=== PATIENT | male | born 1975 | race Caucasian/White ===

== ENCOUNTER 2020-02-14 13:38 | Emergency (ER) | payer BC ==
--- NOTE | 2020-02-14 15:13 | EDM.PDOC ---
ED HPI GENERAL MEDICAL PROBLEM - General Chief Complaint: Abdominal Pain Stated Complaint: HERNIA FLAIR UP Time Seen by Provider: 02/14/20 13:50 Source of Information: Reports: Patient History Limitations: Reports: No Limitations - History of Present Illness INITIAL COMMENTS - FREE TEXT/NARRATIVE: Presents to the emergency room reporting that his hernia hurts. Patient states that he saw his primary provider within the last couple of weeks about an umbilical hernia. He has an ultrasound ordered for February 21. His provider told him that if it ever became painful he should come to the ER and thus he presents. States it used to be soft but now is more firm. Denies fever, dysuria, abdominal pain, nausea, vomiting, constipation or diarrhea. He states he had a somewhat hard brown stool this morning. hernia Pain Score (Numeric/FACES): 7 - Related Data Allergies Allergy/AdvReac Type Severity Reaction Status Date / Time No Known Allergies Allergy Verified 02/14/20 13:56 Home Meds: Home Meds . [No Known Home Meds] 02/14/20 [History] Past Medical History - Past Health History Medical/Surgical History: Denies Medical/Surgical History - Infectious Disease History Infectious Disease History: Reports: Chicken Pox Social & Family History - Family History Family Medical History: Noncontributory - Tobacco Use Smoking Status *Q: Current Every Day Smoker Years of Tobacco use: 24 Packs/Tins Daily: 1 Used Tobacco, but Quit: No Second Hand Smoke Exposure: No - Caffeine Use Caffeine Use: Reports: Coffee - Recreational Drug Use Recreational Drug Use: No ED ROS GENERAL - Review of Systems Review Of Systems: Comprehensive ROS is negative, except as noted in HPI. ED EXAM, RENAL/ - Physical Exam Exam: See Below Exam Limited By: No Limitations General Appearance: Alert, No Apparent Distress Ears: Normal External Exam Nose: Normal Inspection Throat/Mouth: Normal Inspection Head: Atraumatic, Normocephalic Neck: Normal Inspection Respiratory/Chest: No Respiratory Distress Cardiovascular: Normal Peripheral Pulses, Regular Rate, Rhythm GI/Abdominal: Normal Bowel Sounds, Soft, No Distention, Other (1 cm round firm umbilical hernia) Back Exam: Normal Inspection Extremities: Normal Inspection Neurological: Alert, Oriented Psychiatric: Normal Affect, Normal Mood Skin Exam: Warm, Dry, Intact, Normal Color, No Rash Lymphatic: No Adenopathy Course - Vital Signs Last Recorded V/S: Last Vital Signs Temp 35.6 C L 02/14/20 13:53 Pulse 68 02/14/20 17:00 Resp 15 02/14/20 17:00 BP 122/91 H 02/14/20 17:00 Pulse Ox 97 02/14/20 17:00 Departure - Departure Time of Disposition: 17:36 Disposition: Home, Self-Care 01 Condition: Good Clinical Impression: Umbilical hernia Qualifiers: Obstruction and gangrene presence: without obstruction or gangrene Qualified Code(s): K42.9 - Umbilical hernia without obstruction or gangrene - Discharge Information Referrals: Martinez Benito MD [Primary Care Provider] - Forms: ED Department Discharge Additional Instructions: The following information is given to patients seen in the emergency department who are being discharged to home. This information is to outline your options for follow-up care. We provide all patients seen in our emergency department with a follow-up referral. The need for follow-up, as well as the timing and circumstances, are variable depending upon the specifics of your emergency department visit. If you don't have a primary care physician on staff, we will provide you with a referral. We always advise you to contact your personal physician following an emergency department visit to inform them of the circumstance of the visit and for follow-up with them and/or the need for any referrals to a consulting specialist. The emergency department will also refer you to a specialist when appropriate. This referral assures that you have the opportunity for follow-up care with a specialist. All of these measure are taken in an effort to provide you with optimal care, which includes your follow-up. Under all circumstances we always encourage you to contact your private physician who remains a resource for coordinating your care. When calling for follow-up care, please make the office aware that this follow-up is from your recent emergency room visit. If for any reason you are refused follow-up, please contact the [facility] Emergency Department at and asked to speak to the emergency department charge nurse. 1. Please make an appointment with your primary provider to discuss your testing results and possible referral. Sepsis Event Note (ED) - Evaluation Sepsis Screening Result: No Definite Risk - Focused Exam Vital Signs: Vital Signs Temp Pulse Resp BP Pulse Ox 02/14/20 17:00 68 15 122/91 H 97 02/14/20 13:53 35.6 C L 78 16 152/97 H 98
--- NOTE | 2020-02-14 16:02 | US ---
Limited abdominal ultrasound: Multiple real-time images of the abdominal wall were obtained around the umbilicus. Umbilical hernia is seen. Soft tissue material seen within the hernia which is uncertain if this is bowel or due to other abnormality. This finding measures 2.7 cm. Impression: 1. Umbilical hernia as described above. Noncontrast CT study could be obtained to evaluate for bowel extension into this finding. Diagnostic code #3 This report was dictated in MDT
--- NOTE | 2020-02-14 17:08 | CT ---
CT abdomen and pelvis Technique: Multiple axial sections were obtained from above the dome of the diaphragm inferiorly through the pubic symphysis. Intravenous contrast and oral contrast not utilized. Comparison: Prior abdominal ultrasound performed earlier on same day (2:43 PM). Findings: Fat containing umbilical hernia is noted. No bowel is seen within this hernia. There is slight increased density suggesting possible mild incarceration. Please correlate if patient has correlating symptoms. No additional abdominal wall hernia is noted. Other findings: Visualized lung bases show nothing acute. Noncontrast appearance of the liver and spleen shows no focal abnormality. Adrenal glands show no nodule. Kidneys showed no abnormal calcifications. No ureteral dilatation or ureteral stone is seen. Pancreas shows no discrete abnormality. Aorta shows no aneurysm. No retroperitoneal adenopathy or mesenteric abnormalities are seen. No pelvic mass or adenopathy is seen. Appendix is seen which is normal in size. Bone window settings were reviewed and shows severe disc space narrowing at L4-5 with posterior osteophytes and anterior osteophytes as well as mild degenerative apophyseal change. Lesser degenerative change is seen within other portions of the spine. Impression: 1. Fat-containing umbilical hernia. No bowel is seen within this hernia. Hernia shows slight increased density raising the possibility of mild incarceration. Please correlate if patient has correlating symptoms. 2. No other acute finding is seen on noncontrast CT study of the abdomen and pelvis. Diagnostic code #3 This report was dictated in MDT
== END 2020-02-14 17:43 | disposition home or self-care (01) ==
LOC: MW.ED 13:38
DX: K42.9 Umbilical hernia without obstruction or gangrene (principal); F17.210 Nicotine dependence, cigarettes, uncomplicated
CPT/HCPCS: 74176; 74176-26; 76705; 76705-26; 99283; 99283-25

== ENCOUNTER 2020-03-22 06:41 | Day surgery (SDC) | payer BC ==
[~2020-03-22 06:41] MED LIST: Lactated Ringers 1,000 ML IV SCH; Sodium Chloride 0.9% 10 ML SDV IV PRN; Sodium Chloride 0.9% 10 ML Syringe FLUSH PRN; Sodium Chloride 0.9% 2.5 ML Syringe FLUSH PRN; ceFAZolin 2 GM in Premix Bag 1 BAG IV ONE
[2020-03-22] MEDS ORDERED: Ondansetron 4 MG/2 ML SDV ONE (07:15)
[2020-03-22] MEDS ORDERED: Propofol 200 MG/20 ML SDV ONE (07:15)
[2020-03-22] MEDS ORDERED: Lidocaine 2% 5 ML SDV ONE (07:15)
[2020-03-22] MEDS ORDERED: Midazolam 1 MG/ML 2 ML SDV ONE (07:15)
[2020-03-22] MEDS ORDERED: Octyl 2-Cyanoacrylate 1 Tube ONE (07:15)
[2020-03-22] MEDS ORDERED: Bupivacaine 0.5% 30 ML SDV ONE (07:15)
[2020-03-22] MEDS ORDERED: fentaNYL 250 MCG/5 ML SDV ONE (07:16)
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
[2020-03-22] MEDS ORDERED: ceFAZolin/Dextrose,Iso-Osmotic 2 GM/50 ML Duplex Bag IV ONE (07:32)
[2020-03-22] MEDS ORDERED: Albuterol 6.7 GM Inhaler INH ONE (08:27)
[2020-03-22] MEDS ORDERED: Dexamethasone 4 MG/ML 5 ML MDV ONE (08:34)
[2020-03-22] MEDS ORDERED: Ketamine 500 mg/10 ML MDV ONE (08:43)
[2020-03-22] MEDS ORDERED: Naloxone 0.4 MG/ML Syringe IVPUSH PRN (08:49)
[2020-03-22] MEDS ORDERED: Atropine 0.1 MG/ML 10 ML Syringe IVPUSH PRN ×2 (08:49)
[2020-03-22] MEDS ORDERED: 50% Dextrose in Water 50 ML Syringe IVPUSH PRN (08:49)
[2020-03-22] MEDS ORDERED: fentaNYL 100 MCG/2 ML SDV IVPUSH PRN (08:49)
[2020-03-22] MEDS ORDERED: Albuterol 0.083% 2.5 MG/3 ML Neb Soln NEB PRN (08:49)
[2020-03-22] MEDS ORDERED: EPINEPHrine 1:10,000 1 MG/10 ML Syringe IVPUSH PRN (08:49)
--- NOTE | 2020-03-22 09:02 | PCM.OPNOTE ---
- General Post-Op/Procedure Note Date of Surgery/Procedure: 03/22/20 Operative Procedure(s): Umbilical hernia repair. Findings: 1 cm fascial defect with hernia sac containing incarcerated fat. Pre Op Diagnosis: Umbilical hernia. Post-Op Diagnosis: Umbilical hernia. Anesthesia Technique: General LMA Primary Surgeon: Dee Silver Fluid Replacement, Intraop: 1,300 EBL in mLs: 5 Complications: None. Condition: Stable
--- NOTE | 2020-03-22 09:24 | PCM.POSTAN ---
POST ANESTHESIA ASSESSMENT - MENTAL STATUS Mental Status: Alert, Oriented - VITAL SIGNS Vital Signs: Last Vital Signs Temp 97.2 F 03/22/20 09:00 Pulse 89 03/22/20 09:21 Resp 14 03/22/20 09:21 BP 117/74 03/22/20 09:21 Pulse Ox 94 L 03/22/20 09:21 - RESPIRATORY Respiratory Status: Respiratory Rate WNL, Airway Patent, O2 Saturation Stable - CARDIOVASCULAR CV Status: Pulse Rate WNL, Blood Pressure Stable - GASTROINTESTINAL GI Status: No Symptoms - PAIN Pain Score: 1 - POST OP HYDRATION Hydration Status: Adequate & Stable
[2020-03-22] MEDS ORDERED: Acetaminophen/oxyCODONE 325-5 MG Tab PO PRN (10:20)
[2020-03-22] MEDS ORDERED: Ketorolac 30 MG/ML SDV IVPUSH ONE (10:21)
--- NOTE | 2020-03-22 10:37 | PCM48HPAN ---
Post Anesthesia Note - EVALUATION WITHIN 48HRS OF ANESTHETIC Vital Signs in Normal Range: Yes Patient Participated in Evaluation: Yes Respiratory Function Stable: Yes Airway Patent: Yes Cardiovascular Function Stable: Yes Hydration Status Stable: Yes Pain Control Satisfactory: Yes Nausea and Vomiting Control Satisfactory: Yes Mental Status Recovered: Yes Vital Signs: Last Vital Signs Temp 97.2 F 03/22/20 09:00 Pulse 89 03/22/20 09:21 Resp 14 03/22/20 09:21 BP 117/74 03/22/20 09:21 Pulse Ox 94 L 03/22/20 09:21
--- NOTE | 2020-03-22 11:55 | OR ---
SURGEON: DEE SILVER MD DATE OF PROCEDURE: 03/22/2020 PREOPERATIVE DIAGNOSIS: Umbilical hernia. POSTOPERATIVE DIAGNOSIS: Umbilical hernia. PROCEDURE PERFORMED: Umbilical hernia repair. PRIMARY SURGEON: Dee Silver MD [employer] SUPERVISOR: business assistant: Dr. Davis Peralta, resident caregiver. FLUIDS: 1300 mL of crystalloid. ESTIMATED BLOOD LOSS: 5 mL. FINDINGS: 1 cm umbilical fascial defect. Umbilical hernia sac was incarcerated and contained preperitoneal fat and omentum. COMPLICATIONS: None. INDICATIONS: The patient is a 44-year-old male who presented to clinic with a symptomatic umbilical hernia. The patient and I discussed the need for repair. I explained the procedure; expected perioperative course; as well as the risks including bleeding, infection, or damage to surrounding structures and the possibility of recurrence later on in the future. The patient verbalized understanding and wishes to proceed. PROCEDURE IN DETAIL: The patient was brought into the OR and placed on the OR table in supine position. A time-out was completed verifying the patient's name, age, date of , allergies, and procedure to be performed. General endotracheal anesthesia was induced. The abdomen was prepped and draped in usual standard fashion. Upon inspection, the patient had a hernia just to the left of midline around the umbilicus. I anesthetized the left lateral umbilical fold with 0.5% Marcaine plain. A 15 blade was used to make an incision along this fold. Cautery was used to dissect down to level of subcutaneous fat. I immediately encountered a hernia sac. Using tenotomy, I sharply dissected this free from the surrounding tissues. I then excised it from its overlying umbilical skin. My dissection was carried down to the level of the fascia. Once the fascia around the stalk of the hernia sac was cleared away, I opened up the top of the hernia sac. The hernia contained incarcerated omentum as well as preperitoneal fat. I attempted to reduce this back into the abdomen and was unable to do so given how small the fascial defect was. Using electrocautery, I transected the hernia sac and its contents at the level of the fascial defect. This was passed off the field and sent to pathology, labeled as umbilical hernia sac. The fascial defect was then explored. It measured 1 cm in size. All the underlying preperitoneal fat was cleared away from the fascia bluntly. I then closed the fascial defect with interrupted 0 Ethibond sutures. A Valsalva maneuver was performed and there was no evidence of recurrence. Hemostasis was achieved with electrocautery. The wound was then irrigated. I closed the wound with interrupted layers of 3-0 Vicryl suture. The skin was closed with a running 4-0 Monocryl stitch. Dermabond and sterile dressings were applied. All counts were complete and correct at the end of the case. The patient was taken to the PACU in stable condition. ROCAEL HANNAH /[id number]
== END 2020-03-22 11:25 | disposition home or self-care (01) ==
LOC: MW.SDS 06:41
PROVIDERS: ATTEND Surgery
DX: K42.0 Umbilical hernia with obstruction, without gangrene (principal); M79.89 Other specified soft tissue disorders; E66.9 Obesity, unspecified; F17.210 Nicotine dependence, cigarettes, uncomplicated; Z68.32 Body mass index [BMI] 32.0-32.9, adult
CPT/HCPCS: 49587; A9270; J0690; J1100; J1885; J2001; J2250; J2405; J2704; J3010; J3490; J7120; 00750; 88302